=== PATIENT | male | born 1970 | race Caucasian/White ===

== ENCOUNTER 2016-10-28 15:22 | Emergency (ER) | payer MEDICAID ==
[~2016-10-28] VITALS: Ht 182.9 cm; Wt 86.2 kg
[~2016-10-28 15:22] MED LIST: CIPRO 500MG TA500 MG PO; DELTASONE5 MG PO; FLEXERIL10 M1 PO; LORTAB 500 MG-71 TAB PO; MEDROL 4MG. DOSE4 MG PO; NOMEDS; PERCOCET 5/3251 EACH PO; TESSALON PERLE200 MG PO; ULTRAM 50 MG TA50 MG PO
[2016-10-28 15:48] LABS: URINE BILIRUBIN - DIPSTICK NEGATIVE (NEG); URINE BLOOD NEGATIVE (NEG)
--- NOTE | 2016-10-28 15:52 | Emergency Room Report ---
History of Present Illness Time Seen by [id number] Presenting Problem in Triage Pt arrived:Walked Presenting Problem:WENT OUTSIDE TO CHECK ON A HORSE IN THE BARN, NOTICED LIGHTS IN HIS PERIPHEAL VISION, ADDITIONALLY NOTED THAT HE FELT UNSTEADY. STATED HE NEVER PASSED OUT. DENIES ANY TRAUMA TO HEAD. DENIES PAIN OR DISCOMFORT TO CHEST, NECK, FACE, HEAD, TRUNK, OR ARMS. NO CHANGE IN BOWEL OR UOP. DENIES N/V. DENIES DM. 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 N Clinical Suspician of Infection? N Mental Status: 1 - Regular (Normal Baseline) Sepsis Risk:Low Sepsis Risk Have you (or family members/close friends) recently traveled outside the [place]? N If Yes, where/when: Have you had exposure to infectious disease within the past month? TB? Other? Specify: Comment The patient states that he was riding in a car when he developed a visual field abnormality which she describes as an oval shaped bright light with diagonal lines across it in the periphery of his visual field of both eyes. He felt lightheaded. He did not pass out. No headache. No numbness or weakness of extremities. He felt a little unsteady. No chest pain or shortness of breath. He says he has never felt like this in his life and it worried him. The visual disturbance is now gone but he still feels like something is wrong. He has not recently been ill. He is on no medications except for Suboxone for opiate addiction. No recent change in that medication. No alcohol use. 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 The patient's blood pressure was elevated on arrival here. He wonders whether this was related to his blood pressure. He does not have a history of hypertension. He says that he had laser surgery on his RIGHT eye for a traumatic cataract 8 days ago and as far as he knows his blood pressure was fine at that time. ALLERGIES Coded Allergies: aspirin (Mild, 10/28/16) Home Medications Reported Medications No Home Medications (NO HOME MEDICATIONS) History Medical History General Angina: No GA: No Hypertension? No Hyperlipidemia? No COPD? No Asthma? No CVA? No Seizures? No Diabetes? No GB Disease: No MRSA? No TB? No Cancer? No Immunization Hx Ped.Immunizations UTD Yes DT/Tetanus 5-10 YRS Surgical Hx Previous Surgery?Y R EYE SURGERY TONSILLECTOMY R KNEE Social History Smoking Hx Smoker: Current Every Day Smoker Tobacco: Yes Type Cigarettes Packs/day 1 1/2 - 2 Packs Alcohol Alcohol: No Review of Systems All Other Systems Reviewed and Negative Constitutional denies diaphoresis, denies fever Eyes see HPI Respiratory denies shortness of breath Cardiovascular denies chest pain, denies syncope Gastrointestinal denies abdominal pain, denies diarrhea, denies nausea, denies vomiting Psychiatric/Neurological see HPI, denies headache, denies numbness, denies weakness Physical Exam Vital Signs Vital Signs Date Time Temp Pulse Resp B/P Pulse O2 O2 Flow FiO2 Ox Delivery Rate 10/28 1755 74 18 121/75 99 10/28 1524 98.1 74 16 147/101 96 General Appearance normal appearance, WD/WN Eye Exam - bilateral eye normal exam, bilateral eye PERRL, bilateral eye EOMI Ear, Nose, Throat hearing grossly normal, normal ENT inspection Neck normal inspection, non-tender, supple, full range of motion Respiratory Status Yes: trachea midline, chest symmetrical, non tender chest. No: respiratory distress. Lung Sounds bilateral: normal breath sounds, lungs clear. 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 No Results/Orders Laboratory Tests 10/28/16 1540: Sodium 138, Potassium 4.2, Chloride 102, Carbon Dioxide 30, BUN 9, Creatinine 1.2, Estimated Creat Clear 93, Estimated GFR (MDRD) 65, Glucose 93, Calcium 8.5, Total Bilirubin 0.7, AST 43 H, ALT 52, Alkaline Phosphatase 45 L, Creatine Kinase 605 H, CK-MB (CK-2) Rel Index 1.7, CK and CKMB Interp 10.5 *H, Troponin I < 0.02, Total Protein 7.3, Albumin 4.1, Globulin 3.2, Albumin/Globulin Ratio 1.3, WBC 8.0, RBC 5.59, Hgb 17.7, Hct 52.6 H, MCV 94.2, RDW 12.3, Plt Count 266 , MPV 6.9 L, Gran % 64.8, Gran # 5.2, Lymphocytes % 25.8, Monocytes % 5.3, Eosinophils % 3.1, Basophils % 1.0, Lymphocytes # 2.1, Monocytes # 0.4, Eosinophils # 0.3, Basophils # 0.1, PUBS MCHC 33.7, MCH 31.7 H, Opiates Screen NEGATIVE, Urine Methadone Screen NEGATIVE, Barbiturates NEGATIVE, Phencyclidine Screen NEGATIVE, Amphetamines Screen NEGATIVE, Benzodiazepines Screen NEGATIVE, Cocaine Screen NEGATIVE, Marijuana (THC) Screen NEGATIVE, Urine Color YELLOW, Urine Appearance CLEAR, Urine pH 6.0, Ur Specific [place] 1.015, Urine Protein NEGATIVE, Urine Ketones NEGATIVE, Urine Blood NEGATIVE, Urine Nitrate NEGATIVE, Urine Bilirubin NEGATIVE, Urine Urobilinogen 0.2, Ur Leukocyte Esterase NEGATIVE , Urine Bacteria TRACE, Urine Glucose NEGATIVE Current Medication Orders Sig/Paul Start time Last Medication Dose Route Stop Time Status Admin Sodium Chloride 1,000 ML .STK-MED ONE 10/28 1620 DC IV Sodium Chloride 10 ML PRN PRN 10/28 1545 DCD IV 10/29 1535 Orders Procedure Date/time Status DIET-NOTHING BY MOUTH 10/[address] HEAD REQ 10/28 1604 Complete 12 LEAD EKG-BONNY (INITIAL) 10/28 153 Active ELECTROCARDIOGRAM REQUEST 10/28 1535 Active CHEST(2 VIEWS-NOT PORTABLE) 10/28 1535 Active IV SALINE LOCK 10/28 1535 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 No infiltrate, pneumothorax, pleural effusion, or wide mediastinum. Old right-sided rib fractures CT head Comment CT scan interpreted by [facility] radiologist. Faxed report received and reviewed: No intracranial lesion or injury Progress - 5:45 PM: Blood pressure remains persistently elevated in the 160/100 range. Discussed with patient. I will start on lisinopril. Departure Departure Disposition DC Home or Self Care(routine) Clinical Impression Primary Impression: Visual disturbance Secondary Impressions: Hypertension Qualifiers: Hypertension type: unspecified Qualified Code: I10 - Essential ( primary) hypertension Condition STABLE Referrals [facility] (Family) Patient Instructions High Blood Pressure Additional Instructions Follow-up with your primary care physician this week, call Sunday for appointment. Return to the emergency department if symptoms return. Additional instructions regarding BLOOD PRESSURE: One of your blood pressure readings was higher than normal (greater than 120/80) today. Please contact your primary care physician for further evaluation of your blood pressure. Prescriptions Current Visit Scripts LISINOPRIL (Lisinopril) 10 MG PO DAILY #30 TAB ED Critical Care Critical Care No at 1830
[2016-10-28 15:53] LABS: LYMPH # 2.1 K/mm3 (0.7-4.5); LYMPH % 25.8 % (10-50)
[2016-10-28 16:04] LABS: AMPHETAMINES/METAMPHETAMINES NEGATIVE ng/mL (<1000)
[2016-10-28 16:07] LABS: BUN 9 mg/dL (7-18); GFR (ESTIMATED) 65 ML/MIN (>60); HEMOGLOBIN 17.7 g/dL (14.1-18.0)
[2016-10-28] MEDS ORDERED: LISINOPRIL 10MG10 MG PO (17:44)
--- NOTE | 2016-10-28 17:45 | RADIOLOGY REPORT PS360 ---
CT HEAD W/O CONTRAST HISTORY: Visual disturbance/visual abnormality Dizziness, scotoma, seeing lights VISUAL ABNORMALITY ORDERING PHYSICIAN: Malachi Garcia MD PATIENT AGE: 46 years COMPARISON: None TECHNIQUE: Axial images obtained without contrast. Brain and bone windows reviewed. FINDINGS: No midline shift, mass effect, intracranial hemorrhage, hydrocephalus, or extra-axial fluid collection is evident. The calvarium has an unremarkable appearance. No mastoid effusion. Moderate mucosal thickening involves ethmoid and sphenoid sinuses. IMPRESSION: 1. No acute intracranial finding. 2. Sinus disease
[2016-10-28 17:55] VITALS: BP 121/75
--- NOTE | 2016-10-29 06:46 | RADIOLOGY REPORT PS360 ---
CHEST(2 VIEWS-NOT PORTABLE) HISTORY: Near syncope, NEAR SYNCOPE ORDERING PHYSICIAN: Malachi Garcia MD PATIENT AGE: 46 years COMPARISON: Multiple previous exams including 11/26/2010 FINDINGS: Unremarkable heart size. The francisco are slightly prominent possibly vascular in nature. Follow-up may confirm. There are old bilateral rib fractures. Nodularity is noted in the right midlung laterally and may be related to the old rib fractures. No lobar consolidation or collapse. There is a calcified granuloma in the right lower lobe medially. No acute bony anomalies IMPRESSION: Chronic changes, no acute finding. Nodular density right midlung possibly related to the old rib fracture and may be confirmed with follow-up. Mild prominence of the francisco which may be vascular in nature and may also be confirmed with follow-up
== END 2016-10-28 17:56 | disposition home or self-care (01) ==
LOC: ER 15:22
PROVIDERS: Emergency Medicine
DX: H53.8 Other visual disturbances (principal); I10 Essential (primary) hypertension; R42 Dizziness and giddiness